=== PATIENT | male | born 1980 | race Two or more races ===

== ENCOUNTER 2021-12-05 05:30 | Emergency (ER) | payer OTHER ==
[~2021-12-05] VITALS: Ht 175.3 cm; Wt 104.3 kg
[2021-12-05 06:22] LABS: Basophils # (auto) 0.1 10 ^3/uL (0-0.2); Eosinophils # (auto) 0.1 10 ^3/uL (0-0.8); Mean Corpuscular Hgb Conc. 34.7 g/dL (32.0-36.0); Neutrophils # (auto) 1.9 10 ^3/uL (1.6-8.6); White Blood Cell 4.7 10^3/uL (4.4-10.8)
[2021-12-05 06:24] LABS: Basophils % (auto) 1.9 % (0.0-2.0); Eosinophils % (auto) 2.5 % (0.0-7.0); Hematocrit 43.5 % (41.0-53.0); Hemoglobin 15.1 g/dL (13.5-17.5); Lymphocytes # (auto) 1.9 10 ^3/uL (0.4-5.4); Lymphocytes % (auto) 41.6 % (10.0-50.0); Mean Corpuscular Volume 77.6 fL (80.0-100.0); Monocytes # (auto) 0.6 10 ^3/uL (0-1.3); Nucleated Red Blood Cells % 0.4 %; Red Blood Cells 5.61 10^6/uL (4.5-5.90); Red Cell Distribution Width 13.9 % (11.8-14.3)
[2021-12-05 06:38] LABS: Albumin 3.7 g/dL (3.4-5.0); BUN/Creatinine Ratio 16.2; Calcium 9.1 mg/dL (8.5-10.1); Potassium 3.8 mmol/L (3.5-5.1)
[2021-12-05 06:42] LABS: Bilirubin, Total 0.3 mg/dL (0.2-1.0); Partial Thromboplastin Time 28.5 sec (23.6-33.0)
[2021-12-05] MEDS ORDERED: ASPirin 81 mg TAB PO ONE (07:45)
[2021-12-05] MEDS ORDERED: SODIUM CHLORIDE 0.9% 1,000 ML IV ONE (07:45)
[2021-12-05 08:03] LABS: Urine WBC None Seen /hpf (0 - 3)
[2021-12-05 08:11] LABS: Urine Bacteria NONE SEEN /hpf (None Seen); Urine Blood Negative /uL (Negative); Urine Specific Gravity 1.018 (1.001-1.035)
[2021-12-05 12:00] VITALS: BP 107/73
== END 2021-12-05 12:29 | disposition home or self-care (01) ==
LOC: ER 05:30
DX: R07.89 Other chest pain (principal); G47.30 Sleep apnea, unspecified; K21.00 Gastro-esophageal reflux disease with esophagitis, without bleeding; E78.5 Hyperlipidemia, unspecified; Z87.891 Personal history of nicotine dependence
CPT/HCPCS: 36415; 71046; 80053; 81001; 83036; 83735; 83880; 84443; 84484; 85025; 85379; 85610; 85730; 93005; 96360; 96361; 99285; J7030